=== PATIENT | male | born 1955 | race Caucasian/White ===

== ENCOUNTER 2022-11-13 15:44 | Inpatient (IN) | payer OTHER ==
--- OUTSIDE RECORDS SUMMARY | 2022-11-13 15:47 | XMS REPORT | Continuity of Care Document ---
:1955 Author Organization [facility] t Address [address] [place] [address] [place] [id number] Care Team Providers Name Role Phone MEME JONES Primary Care Physician Unavailable KADEN GUTIERREZ Attending Clinician Unavailable Kaden Gutierrez MD Attending Clinician Payers Payer Name Policy Type Policy Number Effective Date Expiration Date S ource [place] - [id number] 2019 00:00:00 OUT OF STATE Problems Condition Condition Condition Status Onset Resolution Last Treating Co mments Source Name Details Category Date Date Treatment Clinician Date 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 24 it y of 00:00: [address] Allergies, Adverse Reactions, Alerts Allergy Allergy Status Severity Reaction(s) Onset Inactive Treating Comm ents Source Name Type Date Date Clinician NO KNOWN Drug Active Univers ALLERGIE Class ity of S [facility] Social History Social Habit Start Date Stop Date Quantity Comments Source Exposure to Not sure [facility] SARS-CoV-2 [facility] (event) [place] Tobacco use and 2020-04-28 2020-04-28 Never used Universit y of exposure 00:00:00 00:00:00 [facility] Alcohol intake 2020-04-28 2020-04-28 Current drinker Unive rsity of 00:00:00 00:00:00 of alcohol [facility] (finding) [place] Sex [birth year] Universit y of 00:00:00 00:00:00 [facility] Smoking Status Start Date Stop Date Source Never smoker [facility] [place] Medications Ordered Filled Start Stop Current Ordering Indication Dosage Frequency Signature Comments Components Source Medication Medication Date Date Medication? Clinician (SIG) Name Name methylPREDN 2020-0 Yes [id number] 84mg Take 21 Univers ISolone 1-14 tablets by ity of (MEDROL, 00:00: mouth [place] MARISOL,) 4 mg 00 SEE-INSTRU Med ical tablets CTIONS. Branch follow package directions methylPREDN 2020-0 Yes [id number] 84mg Take 21 Univers ISolone 1-14 tablets by ity of (MEDROL, 00:00: mouth [place] MARISOL,) 4 mg 00 SEE-INSTRU Med ical tablets CTIONS. Branch follow package directions methylPREDN 2020-0 Yes [id number] 84mg Take 21 Univers ISolone 1-14 tablets by ity of (MEDROL, 00:00: mouth [place] MARISOL,) 4 mg 00 SEE-INSTRU Med ical tablets CTIONS. Branch follow package directions methylPREDN 2020-0 Yes [id number] 84mg Take 21 Univers ISolone 1-14 tablets by ity of (MEDROL, 00:00: mouth [place] MARISOL,) 4 mg 00 SEE-INSTRU Med ical tablets CTIONS. Branch follow package directions methylPREDN 2020-0 Yes [id number] 84mg Take 21 Univers ISolone 1-14 tablets by ity of (MEDROL, 00:00: mouth [place] MARISOL,) 4 mg 00 SEE-INSTRU Med ical tablets CTIONS. Branch follow package directions methylPREDN 2020-0 Yes [id number] 84mg Take 21 Univers ISolone 1-14 tablets by ity of (MEDROL, 00:00: mouth [place] MARISOL,) 4 mg 00 SEE-INSTRU Med ical tablets CTIONS. Branch follow package directions acetaminoph Yes 1{tbl} Take 1 Un kasi en-codeine 7-30 tablet by ity of 300-30 mg 00:00: mouth [place] tablet 00 every 4 Medical (four) Branch hours as needed for Pain (scale 4-6). ketorolac 2016- Yes 10mg Take 1 Univer s 10 mg 7-30 tablet by ity of tablet 00:00: mouth [place] 00 every 6 Medical (six) Branch hours as needed for Pain (scale 4-6) or Pain (scale 7-10). tamsulosin 2017- Yes .4mg Take 1 Unive rs 0.4 mg 24 7-30 capsule by ity of hr capsule 00:00: mouth at [place] as 00 bedtime. Medical Branch ondansetron 2017-0 Yes 4mg Take 1 Univ ers (ZOFRAN, 7-30 tablet by ity of HYDROCHLORI 00:00: mouth [place] DE,) 4 mg 00 every 8 Medical tablet (eight) Branch hours. acetaminoph 2017-0 Yes 1{tbl} Take 1 Un kasi en-codeine 7-30 tablet by ity of 300-30 mg 00:00: mouth [place] tablet 00 every 4 Medical (four) Branch hours as needed for Pain (scale 4-6). ketorolac 2017-0 Yes 10mg Take 1 Univer s 10 mg 7-30 tablet by ity of tablet 00:00: mouth [place] 00 every 6 Medical (six) Branch hours as needed for Pain (scale 4-6) or Pain (scale 7-10). tamsulosin 2017-0 Yes .4mg Take 1 Unive rs 0.4 mg 24 7-30 capsule by ity of hr capsule 00:00: mouth at [place] as 00 bedtime. Medical Branch ondansetron 2017-0 Yes 4mg Take 1 Univ ers (ZOFRAN, 7-30 tablet by ity of HYDROCHLORI 00:00: mouth [place] DE,) 4 mg 00 every 8 Medical tablet (eight) Branch hours. acetaminoph 2017-0 Yes 1{tbl} Take 1 Un kasi en-codeine 7-30 tablet by ity of 300-30 mg 00:00: mouth [place] tablet 00 every 4 Medical (four) Branch hours as needed for Pain (scale 4-6). ketorolac 2017-0 Yes 10mg Take 1 Univer s 10 mg 7-30 tablet by ity of tablet 00:00: mouth [place] 00 every 6 Medical (six) Branch hours as needed for Pain (scale 4-6) or Pain (scale 7-10). tamsulosin 2017-0 Yes .4mg Take 1 Unive rs 0.4 mg 24 7-30 capsule by ity of hr capsule 00:00: mouth at [place] as 00 bedtime. Medical Branch ondansetron 2017-0 Yes 4mg Take 1 Univ ers (ZOFRAN, 7-30 tablet by ity of HYDROCHLORI 00:00: mouth [place] DE,) 4 mg 00 every 8 Medical tablet (eight) Branch hours. acetaminoph 2017-0 Yes 1{tbl} Take 1 Un kasi en-codeine 7-30 tablet by ity of 300-30 mg 00:00: mouth [place] tablet 00 every 4 Medical (four) Branch hours as needed for Pain (scale 4-6). ketorolac 2017-0 Yes 10mg Take 1 Univer s 10 mg 7-30 tablet by ity of tablet 00:00: mouth [place] 00 every 6 Medical (six) Branch hours as needed for Pain (scale 4-6) or Pain (scale 7-10). tamsulosin 2017-0 Yes .4mg Take 1 Unive rs 0.4 mg 24 7-30 capsule by ity of hr capsule 00:00: mouth at [place] 00 bedtime. Medical Branch ondansetron 2017-0 Yes 4mg Take 1 Univ ers (ZOFRAN, 7-30 tablet by ity of HYDROCHLORI 00:00: mouth [place] DE,) 4 mg 00 every 8 Medical tablet (eight) Branch hours. acetaminoph 2017-0 Yes 1{tbl} Take 1 Un kasi en-codeine 7-30 tablet by ity of 300-30 mg 00:00: mouth [place] tablet 00 every 4 Medical (four) Branch hours as needed for Pain (scale 4-6). ketorolac 2017-0 Yes 10mg Take 1 Univer s 10 mg 7-30 tablet by ity of tablet 00:00: mouth [place] 00 every 6 Medical (six) Branch hours as needed for Pain (scale 4-6) or Pain (scale 7-10). tamsulosin 2017-0 Yes .4mg Take 1 Unive rs 0.4 mg 24 7-30 capsule by ity of hr capsule 00:00: mouth at [place] 00 bedtime. Medical Branch ondansetron 2017-0 Yes 4mg Take 1 Univ ers (ZOFRAN, 7-30 tablet by ity of HYDROCHLORI 00:00: mouth [place] DE,) 4 mg 00 every 8 Medical tablet (eight) Branch hours. acetaminoph 2017-0 Yes 1{tbl} Take 1 Un kasi en-codeine 7-30 tablet by ity of 300-30 mg 00:00: mouth [place] tablet 00 every 4 Medical (four) Branch hours as needed for Pain (scale 4-6). ketorolac 2017-0 Yes 10mg Take 1 Univer s 10 mg 7-30 tablet by ity of tablet 00:00: mouth [place] 00 every 6 Medical (six) Branch hours as needed for Pain (scale 4-6) or Pain (scale 7-10). tamsulosin 2017-0 Yes .4mg Take 1 Unive rs 0.4 mg 24 7-30 capsule by ity of hr capsule 00:00: mouth at [place] 00 bedtime. Medical Branch ondansetron 2017-0 Yes 4mg Take 1 Univ ers (ZOFRAN, 7-30 tablet by ity of HYDROCHLORI 00:00: mouth [place] DE,) 4 mg 00 every 8 Medical tablet (eight) Branch hours. methylPREDN 2017-0 Yes 84mg Take 21 Uni vers ISolone 3-08 tablets by ity of (MEDROL, 00:00: mouth [place] MARISOL,) 4 mg 00 SEE-INSTRU Med ical tablets CTIONS. Branch follow package directions methylPREDN 2017-0 Yes 84mg Take 21 Uni vers ISolone 3-08 tablets by ity of (MEDROL, 00:00: mouth [place] MARISOL,) 4 mg 00 SEE-INSTRU Med ical tablets CTIONS. Branch follow package directions methylPREDN 2017-0 Yes 84mg Take 21 Uni vers ISolone 3-08 tablets by ity of (MEDROL, 00:00: mouth [place] MARISOL,) 4 mg 00 SEE-INSTRU Med ical tablets CTIONS. Branch follow package directions methylPREDN 2017-0 Yes 84mg Take 21 Uni vers ISolone 3-08 tablets by ity of (MEDROL, 00:00: mouth [place] MARISOL,) 4 mg 00 SEE-INSTRU Med ical tablets CTIONS. Branch follow package directions methylPREDN 2017-0 Yes 84mg Take 21 Uni vers ISolone 3-08 tablets by ity of (MEDROL, 00:00: mouth [place] MARISOL,) 4 mg 00 SEE-INSTRU Med ical tablets CTIONS. Branch follow package directions methylPREDN 2017-0 Yes 84mg Take 21 Uni vers ISolone 3-08 tablets by ity of (MEDROL, 00:00: mouth [place] MARISOL,) 4 mg 00 SEE-INSTRU Med ical tablets CTIONS. Branch follow package directions HYDROcodone 2016- Yes 1{tbl} Take 1 Tab Univers -acetaminop 4-15 by mouth ity of hen (NORCO) 16:12: every 6 [place] as 5-325 mg 27 (six) Medical tablet hours as Branch needed. Hydrocodone 2016-0 Yes Take by Uni vers -Acetaminop 4-15 mouth. ity of hen (XODOL 16:12: [place] ) 27 Medical 5-300 mg Branch tablet HYDROcodone 2016-0 Yes 1{tbl} Take 1 Tab Univers -acetaminop 4-15 by mouth ity of hen (NORCO) 16:12: every 6 [place] as 5-325 mg 27 (six) Medical tablet hours as Branch needed. Hydrocodone 2016-0 Yes Take by Uni vers -Acetaminop 4-15 mouth. ity of hen (XODOL 16:12: [place] ) 27 Medical 5-300 mg Branch tablet HYDROcodone 2016-0 Yes 1{tbl} Take 1 Tab Univers -acetaminop 4-15 by mouth ity of hen (NORCO) 16:12: every 6 [place] as 5-325 mg 27 (six) Medical tablet hours as Branch needed. Hydrocodone 2016-0 Yes Take by Uni vers -Acetaminop 4-15 mouth. ity of hen (XODOL 16:12: [place] ) 27 Medical 5-300 mg Branch tablet HYDROcodone 2016-0 Yes 1{tbl} Take 1 Tab Univers -acetaminop 4-15 by mouth ity of hen (NORCO) 16:12: every 6 [place] as 5-325 mg 27 (six) Medical tablet hours as Branch needed. Hydrocodone 2016-0 Yes Take by Uni vers -Acetaminop 4-15 mouth. ity of hen (XODOL 16:12: [place] ) 27 Medical 5-300 mg Branch tablet HYDROcodone 2016-0 Yes 1{tbl} Take 1 Tab Univers -acetaminop 4-15 by mouth ity of hen (NORCO) 16:12: every 6 [place] as 5-325 mg 27 (six) Medical tablet hours as Branch needed. Hydrocodone 2016-0 Yes Take by Uni vers -Acetaminop 4-15 mouth. ity of hen (XODOL 16:12: [place] ) 27 Medical 5-300 mg Branch tablet HYDROcodone 2016-0 Yes 1{tbl} Take 1 Tab Univers -acetaminop 4-15 by mouth ity of hen (NORCO) 16:12: every 6 [place] as 5-325 mg 27 (six) Medical tablet hours as Branch needed. Hydrocodone Yes Take by Uni vers -Acetaminop 4-15 mouth. ity of hen (XODOL 16:12: [place] 5/300) 27 Medical 5-300 mg Branch tablet BYSTOLIC 5 2014-03 Yes 5mg Take 5 mg Un kasi mg tablet 2-07 by mouth ity of 00:00: daily. Medical Branch BYSTOLIC 5 2014-03 Yes 5mg Take 5 mg Un kasi mg tablet 2-07 by mouth ity of 00:00: daily. Medical Branch BYSTOLIC 5 2014-03 Yes 5mg Take 5 mg Un kasi mg tablet 2-07 by mouth ity of 00:00: daily. Medical Branch BYSTOLIC 5 2014-03 Yes 5mg Take 5 mg Un kasi mg tablet 2-07 by mouth ity of 00:00: daily. Medical Branch BYSTOLIC 5 2014-03 Yes 5mg Take 5 mg Un kasi mg tablet 2-07 by mouth ity of 00:00: daily. Medical Branch BYSTOLIC 5 2014-03 Yes 5mg Take 5 mg Un kasi mg tablet 2-07 by mouth ity of 00:00: daily. [place] Medical Branch ibuprofen Yes 800mg Take 800 Uni vers (MOTRIN) 6-25 mg by ity of 800 mg 00:00: mouth [place] tablet 00 every Medical morning. Branch ibuprofen Yes 800mg Take 800 Uni vers (MOTRIN) 6-25 mg by ity of 800 mg 00:00: mouth [place] tablet 00 every Medical morning. Branch ibuprofen Yes 800mg Take 800 Uni vers (MOTRIN) 6-25 mg by ity of 800 mg 00:00: mouth [place] tablet 00 every Medical morning. Branch ibuprofen Yes 800mg Take 800 Uni vers (MOTRIN) 6-25 mg by ity of 800 mg 00:00: mouth [place] tablet 00 every Medical morning. Branch ibuprofen Yes 800mg Take 800 Uni vers (MOTRIN) 6-25 mg by ity of 800 mg 00:00: mouth [place] tablet 00 every Medical morning. Branch ibuprofen Yes 800mg Take 800 Uni vers (MOTRIN) 6-25 mg by ity of 800 mg 00:00: mouth [place] tablet 00 every Medical morning. Branch Vital Signs Vital Name Observation Time Observation Value Comments Source Systolic blood 2020-04-28 20:56:00 143 mm[Hg] [facility] Branch Diastolic blood 2020-04-28 20:56:00 78 mm[Hg] [facility] [place] [facility] Body height 2020-04-28 20:55:00 180.6 cm Universi ty [facility] Body weight 2020-04-28 20:55:00 92.987 kg Universi ty [facility] BMI 2020-04-28 20:55:00 28.51 kg/m2 Universi ty [facility] Body height 2020-04-10 19:25:00 180.6 cm Universi ty [facility] Body weight 2020-04-10 19:25:00 92.987 kg Universi ty [facility] BMI 2020-04-10 19:25:00 28.51 kg/m2 Universi ty [facility] Procedures Procedure Date / Time Performed Performing Clinician Sour e XR CERVICAL SPINE 2 2020-04-28 21:28:10 [facility] XR SHOULDER <2 VW 2020-04-28 21:25:00 Kaden Gutierrez [facility] Encounters Start End Encounter Admission Attending Care Care Encounter Source Date/Time Date/Time Type Type Clinicians Facility Department ID 2020-11-14 2020-11-14 [id number] Univers 11:00:00 11:00:00 KADEN galaviz [facility] 2020-04-28 2020-04-28 [facility] [id number] Univers 15:28:10 23:59:00 Encounter Kaden Eduardo [facility] [id number] ity of Surgical [id number] [place] as Specialti [id number] [facility] [address] [facility] 2020-04-28 2020-04-28 [facility] [id number] Univers 14:45:53 15:45:56 Visit Kaden Eduardo [facility] [id number] it y of Surgical [id number] [place] as Specialti [id number] Ok dical es [address] [place] 2020-04-28 2020-04-28 [facility] [id number] Univers 15:24:59 15:27:00 [facility] 2020-04-28 2020-04-28 Hospital [facility] [id number] Univers 15:24:59 15:27:00 Encounter Kaden [facility] [id number] ity of Surgical [id number] [place] as Specialti [id number] Ok dical es [address] [place] 2020-04-10 2020-04-10 [facility] [id number] Univers 15:15:00 15:15:00 [facility] 2020-04-10 2020-04-10 Office [facility] [id number] Univers 13:20:53 13:51:23 Visit Kaden [facility] [id number] it y of Surgical [id number] [place] Specialti [id number] Ok dical es [address] [place] Results This patient has no known results.
[2022-11-13 16:28] LABS: Hematocrit 30.2 % (39.6-49.0); Lymphocytes % 18.6 % (15.3-44.8); MCV 98.6 fL (80-100); MPV 8.6 fL (7.6-11.3); Platelets 172 thou/uL (152-406); RBC Red Blood Cell Count 3.07 M/uL (4.33-5.43)
[2022-11-13 16:29] LABS: Absolute Lymphocytes (CBC) 1.7 K/uL (0.7-4.9)
[2022-11-13] MEDS ORDERED: ASPIRIN 81 MG CHEWABLE TABLET ONE (16:39)
[2022-11-13] MEDS ORDERED: MAGNES/ALUMIN/SIMET 30ML UCUP ONE (16:39)
[2022-11-13] MEDS ORDERED: FAMOTIDINE 20 MG/2 ML VIAL IV ONE (16:40)
[2022-11-13] MEDS ORDERED: DIAZEPAM 5 MG TABLET ONE (16:40)
[2022-11-13 16:42] LABS: Albumin 4.1 g/dL (3.4-5.0); Bilirubin Direct 0.2 mg/dL (0-0.2); Bilirubin Total 1.2 mg/dL (0.2-1.0); Magnesium 2.4 mg/dL (1.6-2.4); Potassium 4.6 mEq/L (3.5-5.1); Protein, Total 7.6 g/dL (6.4-8.2); Troponin High Sensitivity 50.7 pg/mL (<58.9)
--- NOTE | 2022-11-13 16:43 | RAD REPORT ---
EXAM DESCRIPTION: Marlee Single View11/13/2022 4:24 pm CLINICAL HISTORY: dyspne COMPARISON: CHEST PA AND LAT 2 VIEW dated 08/30/2011; CHEST PA AND LAT 2 VIEW dated 10/21/2009; CHEST P A AND LAT 2 VIEW dated 08/11/2009 TECHNIQUE: Portable AP view of the chest. FINDINGS: The lungs are clear. No pneumothorax or effusion. The cardiomediastinal contours are unrem arkable. IMPRESSION: No acute cardiopulmonary process.
[2022-11-13] MEDS ORDERED: Ringers Lactate 1,000 ML IV ONE (17:21)
--- NOTE | 2022-11-13 17:22 | EDPHYS ---
Physician Documentation [facility] [place] Name: Jagdish Levy Age: 66 yrs Sex: Male : 1955 Arrival Date: 11/13/2022 Time: 15:44 Bed 5 Private MD: ED Physician Baldemar Nicole HPI: 11/13 16:09 Patient is a 66-year-old gentleman was outside, felt like he got too hot, sometimes jr11 gets shortness of breath when this happens. Patient states he woke up feeling still short of breath, decided to come in for evaluation. Denies exertional pain, no tearing pain, does not radiate to the back, does not cross the diaphragm. No diaphoresis, no vomiting. No syncope or near-syncope.. Patient came in because he feels anxious and shaky.. Historical: - Allergies: 15:56 No Known Allergies; nj1 - PMHx: 15:56 Hypertensive disorder; Hypercholesterolemia; GERD; nj1 - PSHx: 15:56 None; nj1 - Immunization history:: Client reports having NOT received the Covid vaccine. - Social history:: Smoking status: Patient denies any tobacco usage or history of. ROS: 16:09 All other systems are negative. jr11 Exam: 16:09 Constitutional: This is a well developed, well nourished patient who is awake, alert, jr11 and in no acute distress. Head/Face: Normocephalic, atraumatic. Eyes: Extra-ocular motions intact. Lids and lashes normal. Conjunctiva and sclera are non-icteric and not injected. Cornea within normal limits. Periorbital areas with no swelling, redness, or edema. ENT: Nares patent. No nasal discharge, no septal abnormalities noted. Oropharynx with no redness, swelling, or masses, exudates, or evidence of obstruction, uvula midline. Mucous membranes moist. Chest/axilla: Normal chest wall appearance and motion. Nontender with no deformity. No lesions are appreciated. Cardiovascular: Regular rate and rhythm with a normal S1 and S2. No gallops, murmurs, or rubs. Normal PMI, no JVD. No pulse deficits. Respiratory: Lungs have equal breath sounds bilaterally, clear to auscultation and percussion. No rales, rhonchi or wheezes noted. No increased work of breathing, no retractions or nasal flaring. Abdomen/GI: Soft, non-tender, with normal bowel sounds. No distension or tympany. No guarding or rebound. No evidence of tenderness throughout. Back: No spinal tenderness. No costovertebral tenderness. Full range of motion. Skin: Warm, dry with normal turgor. Normal color with no rashes, no lesions, and no evidence of cellulitis. MS/ Extremity: Pulses equal, no cyanosis. Neurovascular intact. Full, normal range of motion. Neuro: Awake and alert, GCS 15, oriented to person, place, time, and situation. No gross motor or sensory deficits. Vital Signs: 15:45 BP 160 / 78; Pulse 49; Resp 24; Temp 97.8(O); Pulse Ox 100% ; Weight 97.07 kg; Height 5 nj1 ft. 11 in. ; Pain 0/10; 16:25 BP 171 / 46; Pulse 47; Pulse Ox 100% on R/A; ap3 16:56 BP 131 / 69; Pulse 46; ap3 18:44 BP 162 / 98; Pulse 47; Pulse Ox 100% ; ap3 19:24 BP 150 / 60; Pulse 47; Resp 14 S; Pulse Ox 97% on R/A; jw7 15:45 Body Mass Index 29.85 (97.07 kg, 180.34 cm) nj1 15:45 Pain Scale: Adult nj1 MDM: 16:05 Patient medically screened. jr11 16:09 Differential diagnosis: anxiety, chest wall pain, esophagitis, gastritis. Data jr11 reviewed: vital signs, nurses notes. ED course: EKG interpreted by me shows sinus bradycardia rate of 50, normal axis, normal intervals, no acute ST changes. EKG nondiagnostic.. 11/13 15:59 Order name: Basic Metabolic Panel; Complete Time: 16:45 rust 11/13 15:59 Order name: CBC with Diff; Complete Time: 16:37 11/13 15:59 Order name: D-Dimer; Complete Time: 16:37 11/13 15:59 Order name: LFT's; Complete Time: 16:45 rust 11/13 15:59 Order name: Magnesium; Complete Time: 16:45 rust 11/13 15:59 Order name: NT PRO-BNP; Complete Time: 16:45 11/13 15:59 Order name: Troponin HS; Complete Time: 16:45 11/13 18:15 Order name: CPK; Complete Time: 18:47 la1 11/13 15:59 Order name: XRAY Chest (1 view); Complete Time: 16:45 11/13 15:59 Order name: EKG; Complete Time: 15:59 11/13 15:59 Order name: Cardiac monitoring; Complete Time: 16:25 11/13 15:59 Order name: EKG - Nurse/Tech; Complete Time: 16:02 11/13 15:59 Order name: IV Saline Lock; Complete Time: 16:21 11/13 15:59 Order name: Labs collected and sent; Complete Time: 16:21 11/13 15:59 Order name: O2 Per Protocol; Complete Time: 16:21 11/13 15:59 Order name: O2 Sat Monitoring; Complete Time: 16:21 Administered Medications: 16:32 Drug: Diazepam PO 2.5 mg Route: PO; ap3 18:46 Follow up: Response: No adverse reaction ap3 16:32 Drug: Famotidine IVP 20 mg Route: IVP; Site: left antecubital; ap3 18:46 Follow up: Response: No adverse reaction ap3 16:32 Drug: GI Cocktail with - (Phenobarbital-Belladonna PO 10 ml, Maalox PO ap3 Suspension 30 ml, Lidocaine Mucous Membrane Liquid 2 % 20 ml) Route: PO; 18:46 Follow up: Response: No adverse reaction ap3 16:39 Drug: Aspirin PO Chewable Tablet 324 mg Route: PO; hb 19:26 Follow up: Response: No adverse reaction jw7 17:12 Drug: Lactated Ringers Solution IV 1000 ml Route: IV; Rate: 150 ml/hr; Site: left ap3 antecubital; 19:27 Follow up: Response: No adverse reaction; IV Status: Infusion continued upon admission; jw7 IV Intake: 300ml Disposition Summary: 11/13/22 17:22 Hospitalization Ordered Hospitalization Status: Observation jr Provider: Curtis Taveras rust Location: Telemetry/MedSurg (observation) rust Condition: Stable rust Problem: new rust Symptoms: are unchanged rust Bed/Room Type: Standard rust Room Assignment: 409(11/13/22 18:36) eb Diagnosis - Acute ANGELA, volume depletion rust Forms: - Medication Reconciliation Form jr11 - SBAR form rust - Leadership Thank You Letter rust Signatures: Dispatcher [employer] Shyanne Mesa RN RN Maribel Bocanegra RN RN ap3 Patricia Pelayo Jose, MD MD jr11 Meena Brennan RN RN nj1 Liliana Jackson RN jw7 Corrections: (The following items were deleted from the chart) 18:36 17:22 rust eb
--- NOTE | 2022-11-13 17:22 | ER ---
Nurse's Notes [facility] Name: Jagdish Levy Age: 66 yrs Sex: Male : 1955 Arrival Date: 11/13/2022 Time: 15:44 Bed 5 Private MD: Diagnosis: Acute ANGELA, volume depletion Presentation: 11/13 15:45 Chief complaint: Patient states: Shortness of breath and shakiness, states he got nj1 overheated today at work, had same yesterday but felt better after a while once at home. Checked in "i think im having a heart attack". 15:45 Method Of Arrival: Ambulatory [facility] 15:45 Coronavirus screen: Vaccine status: Patient reports being unvaccinated. Ebola Screen: nj1 Patient denies travel to an Ebola-affected area in the 21 days before illness onset. Initial Sepsis Screen: Does the patient meet any 2 criteria? No. Patient's initial sepsis screen is negative. Does the patient have a suspected source of infection? No. Patient's initial sepsis screen is negative. Risk Assessment: Do you want to hurt yourself or someone else? Patient reports no desire to harm self or others. Onset of symptoms was November 13, 2022. 15:45 Acuity: MORRIS 3 nj1 Historical: - Allergies: 15:56 No Known Allergies; nj1 - PMHx: 15:56 Hypertensive disorder; Hypercholesterolemia; GERD; nj1 - PSHx: 15:56 None; nj1 - Immunization history:: Client reports having NOT received the Covid vaccine. - Social history:: Smoking status: Patient denies any tobacco usage or history of. Screenin:25 [facility] ED Fall Risk Assessment (Adult) History of falling in the last 3 months, ap3 including since admission No falls in past 3 months (0 pts). Abuse screen: Denies threats or abuse. Nutritional screening: No deficits noted. Tuberculosis screening: No symptoms or risk factors identified. Assessment: 16:24 General: Appears uncomfortable, Behavior is calm, cooperative, appropriate for age. ap3 Pain: Complains of pain in chest Pain does not radiate. Pain began gradually. Neuro: Level of Consciousness is awake, alert, obeys commands, Oriented to person, place, time, situation. Cardiovascular: Reports None shortness of breath. Respiratory: Airway is patent Respiratory effort is even, unlabored, Respiratory pattern is regular, symmetrical. 19:23 General: NAD, notified pt of room assignment and waiting to call report. No complaints jw7 or concerns at this time. . 19:38 General: attempted to call report, no answer. jw7 20:01 General: attempted to call report, no answer. jw7 Vital Signs: 15:45 BP 160 / 78; Pulse 49; Resp 24; Temp 97.8(O); Pulse Ox 100% ; Weight 97.07 kg; Height 5 nj1 ft. 11 in. ; Pain 0/10; 16:25 BP 171 / 46; Pulse 47; Pulse Ox 100% on R/A; ap3 16:56 BP 131 / 69; Pulse 46; ap3 18:44 BP 162 / 98; Pulse 47; Pulse Ox 100% ; ap3 19:24 BP 150 / 60; Pulse 47; Resp 14 S; Pulse Ox 97% on R/A; jw7 15:45 Body Mass Index 29.85 (97.07 kg, 180.34 cm) nj1 15:45 Pain Scale: Adult nj1 ED Course: 15:45 Patient arrived in ED. ts1 15:48 EKG completed in triage. Results shown to MD. nj1 15:56 Triage completed. nj1 15:57 Arm band placed on right wrist. nj1 15:58 Baldemar Nicole MD is Attending Physician. jr11 16:24 Maribel Bocanegra, RN is Primary Nurse. ap3 16:25 XRAY Chest (1 view) In Process Unspecified. EDMS 16:25 Patient has correct armband on for positive identification. Bed in low position. Call ap3 light in reach. Side rails up X 1. Adult w/ patient. quality assurance monitor chassis on. Pulse ox on. NIBP on. 16:25 Patient maintains SpO2 saturation greater than 95% on room air. ap3 17:21 Curtis Taveras MD is Hospitalizing Provider. jr11 19:25 No provider procedures requiring assistance completed. Patient admitted, IV remains in jw7 place. 19:26 Provided Education on: need for admit. jw7 Administered Medications: 16:32 Drug: Diazepam PO 2.5 mg Route: PO; ap3 18:46 Follow up: Response: No adverse reaction ap3 16:32 Drug: Famotidine IVP 20 mg Route: IVP; Site: left antecubital; ap3 18:46 Follow up: Response: No adverse reaction ap3 16:32 Drug: GI Cocktail with - (Phenobarbital-Belladonna PO 10 ml, Maalox PO ap3 Suspension 30 ml, Lidocaine Mucous Membrane Liquid 2 % 20 ml) Route: PO; 18:46 Follow up: Response: No adverse reaction ap3 16:39 Drug: Aspirin PO Chewable Tablet 324 mg Route: PO; hb 19:26 Follow up: Response: No adverse reaction jw7 17:12 Drug: Lactated Ringers Solution IV 1000 ml Route: IV; Rate: 150 ml/hr; Site: left ap3 antecubital; 19:27 Follow up: Response: No adverse reaction; IV Status: Infusion continued upon admission; jw7 IV Intake: 300ml Medication: 19:25 VIS not applicable for this client. jw7 Intake: 19:27 IV: 300ml; Total: 300ml. jw7 Outcome: 17:22 Decision to Hospitalize by Provider. jr 19:25 Condition: stable jw7 19:25 Instructed on the need for admit, Demonstrated understanding of instructions. 20:38 Admitted to Tele accompanied by nurse, via wheelchair, room 409, with chart. jw7 20:38 Patient left the ED. jw7 Signatures: Dispatcher [employer] EDMS Shyanne Newell RN RN Maribel Bocanegra RN RN ap3 Liliana Jackson RN RN jw7 Baldemar Nicole MD MD jr11 Meena Brennan RN RN nj1 Brandee Tate PAS PAS ts1
--- NOTE | 2022-11-13 18:59 | P.HP ---
Certification for Inpatient Patient admitted to: Inpatient With expected LOS: >2 Midnights Patient will require the following post-hospital care: None Practitioner: I am a practitioner with admitting privileges, knowledge of patient current condition, hospital course, and medical plan of care. Services: Services provided to patient in accordance with Admission requirements found in Title 42 Section 412.3 of the Code of Federal Regulations Patient History Date of Service: 11/13/22 Reason for admission: Acute renal failure, chest pain History of Present Illness: 66-year-old male with history of hypertension, hyperlipidemia, anemia presents emergency department with chief complaint of heat exhaustion, chest pain. He reports the last couple days he has [place] and felt like he overdid it, after getting home he was having an abnormal sensation in his chest that felt kind of like reflux to him. He came to the ER for evaluation. His labs were significant for hemoglobin 10.3 hematocrit 30.2 sodium 132 bicarb 18 creatinine 3.28 GFR 20 BUN 50 glucose 163 chest x-ray is negative for acute findings EKG without STEMI criteria. Initial has not to be troponin negative. No previous labs available for comparison as far as renal function goes but patient has never been told he had any issues with his kidneys and he does have annual labs. He will need to admitted for acute renal failure. 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 moist/pink, EOMI, Sclerae nonicteric Neck: Supple, 2+ carotid pulse no bruit, No LAD, Without JVD or thyroid abnormality Respiratory: Clear to auscultation bilaterally, Normal air movement Cardiovascular: Regular rate/rhythm, Normal S1 S2 Gastrointestinal: Normal bowel sounds, No tenderness Musculoskeletal: No tenderness Integumentary: No rashes Neurological: Normal gait, Normal speech, Normal strength at 5/5 x4 extr, Normal tone, Normal affect Lymphatics: No axilla or inguinal lymphadenopathy - Studies Laboratory Data (last 24 hrs) 11/13/22 11/13/22 16:12 16:12 WBC 9.30 Hgb 10.3 L Hct 30.2 L Plt Count 172 Sodium 132 L Potassium 4.6 BUN 50 H Creatinine 3.28 H Glucose 163 H Magnesium 2.4 Total Bilirubin 1.2 H AST 14 L ALT 26 Alkaline Phosphatase 52 Assessment and Plan - Plan Assessment: Acute kidney injury Chest pain Hypertension Hyperlipidemia Sinus bradycardia Plan: Acute kidney injury Continue IV fluids, bolused in the emergency department. Nephrology consult, renal ultrasound. Chest pain Reports vague discomfort similar to GERD at rest. Has improved. Trend troponins, monitor on telemetry. Hypertension Hold losartan given ANGELA. Hyperlipidemia Continue home medications. Sinus bradycardia Review home medications, patient unsure if he is on a beta-tom. He is asymptomatic at this time heart rate around 45. Monitor on telemetry. DVT PPX: Subcu heparin Code status: Full Discharge Plan: Home Plan to discharge in: 48 Hours - Advance Directives Does patient have a Living Will: No Does patient have a Durable POA for Healthcare: No - Code Status/Comfort Care Code Status Assessed: Yes (Full code) Critical Care: No Time Spent Managing Pts Care (In Minutes): 55
[2022-11-13] MEDS ORDERED: ONDANSETRON 4 MG/2 ML VIAL IV PRN (20:12)
[2022-11-13] MEDS: NA CHLORIDE 0.9% 1,000 ML IV SCH (20:55)
[2022-11-13] MEDS: HEPARIN 5000 UNIT/ML 1 ML VIAL SQ SCH (20:55)
[2022-11-13 20:56] VITALS: O2SAT 97
--- NOTE | 2022-11-13 21:49 | RAD REPORT ---
EXAM DESCRIPTION: US - Renal Ultrasound-Complete - 11/13/2022 9:22 pm CLINICAL HISTORY: [place] COMPARISON: No comparisons TECHNIQUE: Sonographic grayscale and color flow images of the kidneys and bladder were obtained. FINDINGS: Both kidneys are normal in size, shape and echotexture. The right kidney measures 11.3 cm in length. No hydronephrosis, focal mass or perinephric fluid. The left kidney measures 10.2 cm in length. No hydronephrosis, focal mass or perinephric fluid. The urinary bladder is incompletely distended limiting evaluation, without gross abnormality seen. IMPRESSION: Unremarkable renal sonogram. Bladder is suboptimally distended.
[2022-11-13 22:38] VITALS: BMI 29.8
[2022-11-13] MEDS: HYDRALAZINE HCL 20 MG/ML VIAL IV PRN (23:03)
[2022-11-14 05:41] LABS: Specific Gravity 1.017 (1.005-1.030); Urine Bacteria None Seen /HPF (<20); Urine Bilirubin NEGATIVE (Negative); Urine Blood Negative (Negative); Urine Clarity Clear (Clear); Urine Color Light-Yellow (Yellow); Urine Glucose NEGATIVE (Negative); Urine Protein NEGATIVE (Negative); Urine RBC <5 /HPF (None Seen); Urine Urobilinogen Normal (Normal); Urine pH 5.5 (5.0-7.0)
[2022-11-14] MEDS: NA CHLORIDE 0.9% 1,000 ML IV SCH ×3 (05:59→20:17)
[2022-11-14 07:25] LABS: Absolute Lymphocytes (CBC) 2.1 K/uL (0.7-4.9); Lymphocytes % 30.6 % (15.3-44.8); MCV 98.6 fL (80-100); MPV 8.5 fL (7.6-11.3); Platelets 146 thou/uL (152-406); RBC Red Blood Cell Count 2.74 M/uL (4.33-5.43)
[2022-11-14 07:53] LABS: Albumin 3.3 g/dL (3.4-5.0); Bilirubin Total 0.8 mg/dL (0.2-1.0); Potassium 4.1 mEq/L (3.5-5.1); Protein, Total 6.4 g/dL (6.4-8.2); Thyroid Stimulating Hormone 1.24 uIU/mL (0.358-3.740); Troponin High Sensitivity 38.8 pg/mL (<58.9)
[2022-11-14] MEDS: HEPARIN 5000 UNIT/ML 1 ML VIAL SQ SCH ×2 (08:23→20:17)
[2022-11-14] MEDS ORDERED: PNEUMOCOCCAL VACCINE 0.5 ML IMVAC ONE (12:30)
--- NOTE | 2022-11-14 16:11 | P.PN ---
Subjective Date of Service: 11/14/22 Chief Complaint: Acute renal failure, chest pain No acute events overnight. He reports that he feels significantly better. He endorses working out in the hot temperatures and likely not consuming enough fluids. His creatinine is down-trending. He denies any chest pain, palpitations, or shortness of breath. Review of Systems 10-point ROS is otherwise unremarkable Physical Examination - Vital Signs Temperature: 98.4 F Blood Pressure: 132/67 Pulse: 49 Respirations: 16 Pulse Ox (%): 98 - Physical Exam General: Alert, In no apparent distress, Oriented x3 HEENT: Atraumatic, Mucous membr. moist/pink, Sclerae nonicteric Neck: JVD not distended Respiratory: Clear to auscultation bilaterally, Normal air movement Cardiovascular: No edema, Regular rate/rhythm, Normal S1 S2, No gallops, No rubs, No murmurs Gastrointestinal: Normal bowel sounds, Soft and benign, Non-distended, No tenderness, No rebound, No guarding Musculoskeletal: No clubbing Integumentary: No rashes Neurological: Normal speech, Normal affect - Studies Laboratory Data (last 24 hrs) 11/13/22 11/13/22 16:12 16:12 WBC 9.30 Hgb 10.3 L Hct 30.2 L Plt Count 172 Sodium 132 L Potassium 4.6 BUN 50 H Creatinine 3.28 H Glucose 163 H Magnesium 2.4 Total Bilirubin 1.2 H AST 14 L ALT 26 Alkaline Phosphatase 52 Assessment And Plan - Plan # Acute Kidney Injury - likely pre-renal due to Heat Exhaustion and Dehydration - Evaluation: - History consistent with heat exhaustion/dehydration - Creatinine = 3.28 -> 2.23 (baseline creatinine unknown) - Urinalysis = 75 leukocyte esterase, 5-10 hyaline casts - Renal ultrasound = "unremarkable renal sonogram." - Management plan: - Consulted Nephrology - recommendations appreciated - Continue Normal Saline @ 125 mL/hr - Monitor creatinine and urine output - Renally dose medications - Avoid nephrotoxic agents # Chest Pain - resolved # Sinus Bradycardia - likely due to Nebivolol - He reports that chest pain felt like acid reflux. He denies any current chest pain. Possibly had a vagal reflex, resulting in sinus bradycardia. - Chest x-ray = "no acute cardiopulmonary process." - Cardiology consulted - recommendations appreciated - D-Dimer = 236 - EKG - without STEMI criteria - Serial troponin: 50.7 -> 51.8 -> 38.8 - Hold home beta-tom # Hypertension - Hold losartan, nebivolol given ANGELA # Hyperlipidemia - Continue home atorvastatin # Normocytic Anemia - Unknown chronicity. He denies any evidence of bleeding. - Serial Hgb - Outpatient follow-up Curtis Taveras M.D.
--- NOTE | 2022-11-14 19:01 | P.PN ---
Date of Service: 11/15/22 Subjective: ROS: 10 point ROS as noted above, otherwise negative Physical Exam: Gen: Alert, Oriented, NAD HEENT: normal conjunctiva, sclera anicteric CV: regular rate & rhythm, no edema Pulm: non-labored respirations on room air Abd: soft, nontender, nondistended MSK: no joint tenderness Integumentary: No rashes Neuro: normal speech, normal affect Problem List: 1. ANGELA secondary to Heat Exhaustion and Dehydration 2. Chest Pain, resolved 3. Sinus Bradycardia - likely due to Nebivolol 4. Hypertension 5. Hyperlipidemia 6. Normocytic Anemia PLAN Nephrology consulted Monitor renal function Renally dose medications Avoid nephrotoxic agents Continue IV fluids Cardiology consulted D-Dimer: 236 troponins negative x3 Hold home beta-tom hold losartan, nebivolol given ANGELA Continue home atorvastatin Serial H&H. transfuse if hgb < 7 f/u outpatient for Normocytic anemia VTE: Heparin sq Code: Full Dispo: Home
--- NOTE | 2022-11-14 20:45 | CON ---
Date of Consultation: 11/14/2022 Reason For Consultation: Chest pain. History Of Present Illness: A 66-year-old with history of hypertension, dyslipidemia, anemia, presen calra with generalized body aches including nausea and chest discomfort while has [place] [facility] [place] time and he started to feel generally weak and dizzy and lightheaded. Past Medical History: As outlined above in HPI. Medications: Refer reconciliation sheet for detailed list. Allergies: NO KNOWN DRUG ALLERGIES. Family History: No premature coronary artery disease or cancer. Social History: He does not smoke or drink. Does not use any drugs. Review of Systems: All systems reviewed were negative except as mentioned in HPI. Physical Examination: Vital Signs: Reviewed. Head and Neck: Pupils are equal, reactive to light. Intact eye movements. No JVD. No cervical lym phadenopathy. Neck is supple. Thyroid is not enlarged. Lungs: Clear to auscultation bilaterally. No rhonchi, wheezing, or crackles. No accessory muscle u se. Heart: Regular rate and rhythm. No extra sounds. Abdomen: Soft, nontender. Bowel sounds positive. No organomegaly. No masses or hernia. No rigidi ty or rebound. Extremities: No edema, clubbing, or cyanosis. Intact pulses. Skin: No rash. Neurologic: Alert, awake, oriented x3. No acute focal deficits appreciated. Investigations: BUN 45, creatinine 2.2. His cardiac enzymes x3 are negative and hemoglobin 9.4. Assessment/recommendations: 1.Chest pain with negative cardiac enzymes. He claimed that he sees his repeater chief at [facility] year and he had a stress test and echo within the past year that were negative and the patient bone s been working out in the heat. He has an acute renal failure likely and rhabdomyolysis. I believe his chest pain is noncardiac. Obtain an echo tomorrow to evaluate for any wall motion abnormality. If that is negative, from my standpoint, patient can be released to follow up with his repeater chief a nd obtain an outpatient stress test. 2.Acute renal failure, likely due to severe dehydration, improving with IV fluid management. 3.Hypertension. Pressure is controlled. SR/MODL Voice ID: [id number] Report ID: [id number]
[2022-11-14] MEDS ORDERED: ATORVASTATIN 10 MG TAB PO SCH (21:00)
--- NOTE | 2022-11-14 21:57 | CON ---
Date of Consultation: 11/14/2022 Chief Complaint: Acute kidney injury. The patient came to the hospital because of chest pain. He was found to have elevated BUN and creatinine. Subjective: The patient is a 66-year-old man with history of hypertension, hyperlipidemia, anemia. He presented to emergency room with chief complaint of heat exhaustion, chest pain. He had recent history of activities and work, out on the beach with [place] as well as he did some activities at home. He developed some chest pain and felt that it can be reflux. He came to the hospital because he was not feeling better and he developed progressively worse weakness. Laboratory Work: Showed hemoglobin of 10.3, hematocrit 30.27, sodium 132, bicarbonate 18, creatinine 3.28, GFR 20, BUN 50, glucose 163. Chest x-ray was negative for acute abnormalities and EKG did not show any ST elevation myocardial infarction. Troponin was negative. The patient was admitted to the hospital and had IV fluids started for volume depletion and for acute kidney injury. Past Medical History: Hypertension, hyperlipidemia, anemia, chronic knee surgery. Family History: No kidney disease in the family. Social History: Denies tobacco. He drinks alcohol seldom occasionally. He drinks caffeine. Review of Systems: Constitutional: Denies fever or chills. Eyes: Denies vision changes. Ears, Nose, Mouth, and Throat: Denies sore throat, earache. Respiratory: Denies PND, orthopnea. Cardiovascular: Denies chest pain, palpitation. GI: Denies nausea or vomiting. : Denies dysuria, hematuria. Neurological: Denies seizures, tremors, had generalized weakness. Denies unilateral weakness. All other systems reviewed and all are negative. Physical Examination: General: Patient is awake, alert, follows commands. Eyes: Anicteric sclerae. EOMI. Ears, Nose, Mouth, and Throat: Oral mucosa moist. No pallor. Neck: Supple. No JVD. No bruits. Cardiovascular: S1, S2. No pericardial friction rub. Abdomen: Soft, benign. Nontender. No rebound, no guarding. Extremities: No edema. No clubbing. No cyanosis. Laboratory Data: Potassium 4.6, BUN 50, creatinine 3.28, glucose 163, magnesium 2.4. Total bilirubin 1.2, AST 14, ALT 26, AP 52. Hemoglobin 10.3, WBC 9.3, platelet count 172. Impression And Plan: 1. Acute kidney injury. The patient has nonoliguric urine output. Patient is responding to IV fluids. Electrolytes are stable. The patient does not have uremic symptomatology. He developed severe prerenal azotemia with nonoliguric ATN. Patient will continue IV fluids. Renal ultrasound was ordered to assess kidney size and evaluate for possible chronic kidney disease. . 2. Hypertension. Losartan on hold due to acute kidney injury and risk of hyperkalemia. Continue renal diet. 3. Sinus bradycardia. The patient was not sure if he was taking beta tom. Monitor electrolytes including magnesium and phosphorus. 4. Monitor for any evidence of nephritis. Screen for proteinuria. Urinalysis was done during this admission and showed rbc's less than 5, wbc's from 5 to 10. Protein screen is negative. 5. Patient tolerates IV fluids. Continue to monitor blood pressure. Adjust blood pressure medication. Renal function is improving. Currently, DIANA inhibitor is on hold due to acute kidney injury. Patient is on hydralazine for blood pressure control. KYLE/NORMA Voice ID: [id number] Report ID: [id number] MTDD
[2022-11-15] MEDS: NA CHLORIDE 0.9% 1,000 ML IV SCH (04:46)
[2022-11-15 06:14] LABS: Absolute Lymphocytes (CBC) 1.7 K/uL (0.7-4.9); Hematocrit 27.4 % (39.6-49.0); MPV 8.3 fL (7.6-11.3); Platelets 140 thou/uL (152-406); RBC Red Blood Cell Count 2.77 M/uL (4.33-5.43)
[2022-11-15 06:33] LABS: Albumin 3.2 g/dL (3.4-5.0); Bilirubin Total 0.9 mg/dL (0.2-1.0); Potassium 4.2 mEq/L (3.5-5.1); Protein, Total 6.2 g/dL (6.4-8.2)
[2022-11-15] MEDS: HEPARIN 5000 UNIT/ML 1 ML VIAL SQ SCH (08:44)
[2022-11-15] MEDS: HYDRALAZINE HCL 20 MG/ML VIAL IV PRN (08:44)
[2022-11-15 12:31] VITALS: BP 187/74; TEMP 98.4
--- NOTE | 2022-11-15 15:38 | P.DS ---
Discharge Date: 11/15/22 Disposition: ROUTINE DISCHARGE Discharge Condition: GOOD Reason for Admission: Acute renal failure, chest pain Consultations: Cardiology Nephrology Brief History of Present Illness: 66-year-old male with history of hypertension, hyperlipidemia, anemia presents emergency department with chief complaint of heat exhaustion, chest pain. He reports the last couple days he has [place] doing [place] and felt like he overdid it, after getting home he was having an abnormal sensation in his chest that felt kind of like reflux to him. He came to the ER for evaluation. His labs were significant for hemoglobin 10.3 hematocrit 30.2 sodium 132 bicarb 18 creatinine 3.28 GFR 20 BUN 50 glucose 163 chest x-ray is negative for acute findings EKG without STEMI criteria. Initial has not to be troponin negative. No previous labs available for comparison as far as renal function goes but patient has never been told he had any issues with his kidneys and he does have annual labs. He will need to admitted for acute renal failure. Hospital Course: Patient is a 66-year-old gentleman who came to the hospital with acute renal insufficiency. His renal function improved during hospitalization. Patient is doing well and blood pressure is slightly elevated but patient did not take his home medications. Will resume his home medications. I left my number to call me if there is any issues with his blood pressure and we can adjust his home medicines. At this time patient is clinically doing well and patient is being cleared by cardiology and nephrology to follow-up as an outpatient and okay for discharge. At this time, patient is stable for discharge home with outpatient follow-up. Vital Signs/Physical Exam: Temp Pulse Resp BP Pulse Ox 98.4 F 59 16 187/74 H 100 11/15/22 12:00 11/15/22 12:00 11/15/22 12:00 11/15/22 12:00 11/15/22 12:00 General: Alert, In no apparent distress, Oriented x3 Laboratory Data at Discharge: WBC 6.20 thou/uL (4.3-10.9) 11/15/22 05:51 Hgb 9.5 g/dL (13.6-17.9) L 11/15/22 05:51 Hct 27.4 % (39.6-49.0) L 11/15/22 05:51 Plt Count 140 thou/uL (152-406) L 11/15/22 05:51 Sodium 140 mEq/L (136-145) 11/15/22 05:51 Potassium 4.2 mEq/L (3.5-5.1) 11/15/22 05:51 BUN 28 mg/dL (7-18) H 11/15/22 05:51 Creatinine 1.32 mg/dL (0.70-1.30) H 11/15/22 05:51 Glucose 95 mg/dL (74-106) 11/15/22 05:51 Magnesium 2.4 mg/dL (1.6-2.4) 11/13/22 16:12 Total Bilirubin 0.9 mg/dL (0.2-1.0) 11/15/22 05:51 AST 10 U/L (15-37) L 11/15/22 05:51 ALT 18 U/L (16-61) 11/15/22 05:51 Alkaline Phosphatase 41 U/L (45-117) L 11/15/22 05:51 Home Medications: Aspirin [Ecotrin 81 MG] 1 tab PO DAILY 11/13/22 Atorvastatin Calcium [Lipitor*] 1 tab PO BEDTIME 11/13/22 Ferrous Sulfate [Iron] 1 tab PO DAILY 11/13/22 Losartan Potassium [Cozaar] 1 aer PO BID 11/13/22 Nebivolol HCl [Bystolic*] 1 tab PO DAILY 11/13/22 Omeprazole [Prilosec] 1 tab PO DAILY 11/13/22 Physician Discharge Instructions: -DC IV and DC home -Follow-up with PCP in 1 to 2 weeks -Follow-up with Cardiology and nephrology in 1 to 2 weeks -Please call Dr. Mckenzie at [phone] if any questions regarding hospital stay -Please call nursing station at [phone] if any nursing or medication questions -Return to the emergency room if symptoms worsen Diet: AHA Activity: Fall precautions Followup: Eder Lopez MD [Primary Care Provider] - Time spent managing pt's care (in minutes): 35
--- NOTE | 2022-11-15 18:03 | EKG ---
Test Date: 2022-11-13 Test Time: 15:48:12 Fermenter: MATHEUS MEASUREMENT RESULTS: Intervals: Rate: 50 UT: 120 QRSD: 86 QT: 476 QTc: 433 [place]: P: 54 UT: 120 QRS: 56 T: 66 INTERPRETIVE STATEMENTS: Sinus bradycardia Otherwise normal ECG Compared to ECG 05/10/2001 08:44:00 Sinus rhythm no longer present Left ventricular hypertrophy no longer present Electronically Signed On 11-15-22 17:57:56 CDT by Manas Silva
--- NOTE | 2022-11-15 21:33 | PN ---
Date of Progress Note: 11/15/2022 Subjective: Seen by bedside. No further chest pain. Review of Systems: No chest pain, shortness of breath, orthopnea, cough. No nausea, vomiting, diarrhea. All other syst ems reviewed are negative. Physical Examination: Vital signs: Reviewed. Head and Neck: Pupils are equal, reactive to light. Intact eye movements. No JVD. No cervical lym phadenopathy. Neck is supple. Thyroid is not enlarged. Lungs: Clear to auscultation bilaterally. No rhonchi, wheezing, or crackles. No accessory muscle u se. Heart: Regular rate and rhythm. No extra sounds. Abdomen: Soft, nontender. Bowel sounds positive. No organomegaly. No masses or hernia. No rigidi ty or rebound. Extremities: No edema, clubbing, cyanosis. Intact pulses. Skin: No rash. Neurologic: Alert, awake, oriented x3. No acute focal deficits appreciated. Investigations: BUN 28, creatinine 1.32. Hemoglobin is 9.5. Assessment/recommendations: 1.Chest pain with negative cardiac enzymes. 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 2.Acute renal failure due to dehydration. This is resolved. 3.Hypertension. Blood pressure is controlled. Cardiology will sign off. SR/MODL Voice ID: [id number] Report ID: [id number]
--- NOTE | 2022-11-16 02:54 | PN ---
Date of Progress Note: 11/15/2022 Chief Complaint: Acute kidney injury. Patient was admitted to the hospital because of generalized weakness and some orthostatic hypotension. He was found to have acute kidney injury, came to the hospital because of chest pain and generalized weakness. BUN and creatinine level were elevated. Subjective: The patient is a 66-year-old man with history of hypertension, hyperlipidemia, anemia. He presented to the hospital because of heat exposure. He was complaining of chest pain. 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 Review of Systems: Denies chest pain, palpitation. He is feeling better. Physical Examination: Lungs: Diminished breath at bases. Heart: S1, S2. Abdomen: Soft. Extremities: No edema. Impression And Plan: 1. The patient has acute kidney injury. On arrival to the hospital, creatinine level was 3.28, BUN 50, and glucose 163, potassium 4.6. Renal function is gradually improved in response to IV fluids. The patient tolerated IV fluids. Continue adequate hydration. 2. Hypertension. Losartan is on hold secondary to acute kidney injury and risk of hyperkalemia. Continue renal diet. 4. Sinus bradycardia. Patient was not sure if he was taking beta-tom. This may be a cause of bradycardia. Monitor magnesium and phosphorus level. 5. Monitor for any evidence of nephritis. The patient had a screen for proteinuria. Urinalysis was done to check for any abnormal urinary sediment, which may go along with nephritis. 6. Acute kidney injury due to volume depletion. The patient tolerated IV fluids. Monitor blood pressure. Avoid angiotensin receptor tom. Avoid DIANA inhibitor. KYLE/NORMA Voice ID: [id number] Report ID: [id number] HOANG
== END 2022-11-15 16:35 | disposition home or self-care (01) | DRG 683 ==
LOC: ER 15:44 → ERHOLD 18:14 → 4TH 19:12
PROVIDERS: ADMIT Internal Medicine; ATTEND Hospitalist
DX: N17.0 Acute kidney failure with tubular necrosis (principal); M62.82 Rhabdomyolysis; I10 Essential (primary) hypertension; E86.9 Volume depletion, unspecified; K21.9 Gastro-esophageal reflux disease without esophagitis; E78.00 Pure hypercholesterolemia, unspecified; I95.1 Orthostatic hypotension; E86.0 Dehydration; R00.1 Bradycardia, unspecified; T67.5XXA Heat exhaustion, unspecified, initial encounter; Z79.82 Long term (current) use of aspirin; Z79.899 Other long term (current) drug therapy; Z28.310 Unvaccinated for COVID-19; Z91.128 Patient's intentional underdosing of medication regimen for other reason
CPT/HCPCS: 36415; 71045; 76770; 80048; 80053; 80076; 81001; 82550; 83735; 83880; 84439; 84443; 84484; 85025; 85379; 93005; 96361; 96374; 99285; J0360; J1644; J7030; J7120